=== PATIENT | female | born 2000 | race Two or more races ===

== ENCOUNTER 2025-01-12 13:05 | Emergency (ER) | payer OTHER ==
[~2025-01-12] VITALS: Ht 160 cm; Wt 54.4 kg
[2025-01-12] MEDS ORDERED: ONDANSETRON HCL 2 MG/ML VIAL IV ONE (14:45)
[2025-01-12] MEDS ORDERED: 0.9 % SODIUM CHLORIDE 1,000 ML IV ONE (14:45)
[2025-01-12] MEDS ORDERED: FAMOTIDINE/PF 20 MG/2 ML VIAL IV ONE (14:45)
[2025-01-12] MEDS ORDERED: FAMOTIDINE/PF 20 MG/2 ML VIAL ONE (15:31)
[2025-01-12] MEDS ORDERED: ONDANSETRON HCL 2 MG/ML VIAL ONE (15:31)
[2025-01-12 15:52] LABS: BASO % 0.5 % (0.1-1.2); EOS # 0.10 (0.04-0.54); EOS % 1.1 % (0.7-7.0); LYMPH # 1.96 (1.18-3.74); LYMPH % 20.7 % (19.3-53.1); MEAN PLATELET VOLUME 9.40 fl (9.4-12.4); MONO # 0.53 (0.24-0.82); MONO % 5.6 % (4.7-12.5); NEUT # 6.80 (1.56-6.13); NEUT % 71.8 % (34.0-71.1); RED CELL DISTRIBUTION WIDTH 13.4 % (11.6-14.4)
[2025-01-12 16:28] LABS: COVID-19 AG NEGATIVE (NEGATIVE)
[2025-01-12 16:41] LABS: ALT/SGPT 20.0 U/L (12-78); AST/SGOT 12.0 U/L (15-37); BILIRUBIN TOTAL 0.51 mg/dL (0.3-1.2); BUN CREA RATIO 9.0 (7.0-25.0); CREATININE SERUM 0.8 mg/dL (0.55-1.02); GFR 87.39; GLOBULINA 3.9 G/DL (2.4-3.5); GLUCOSE FASTING 101.0 mg/dL (65-100); OSMOLALITY SERUM 276.0 MOSM/KG (275-295)
[2025-01-12] MEDS ORDERED: ONDANSETRON ODT4 MG PO (18:27)
[2025-01-12] MEDS ORDERED: PEPCID AC20 MG PO (18:27)
[2025-01-12 21:22] VITALS: BP 125/74; O2SAT 100
== END 2025-01-12 21:23 | disposition home or self-care (01) ==
LOC: ER 13:06
PROVIDERS: Emergency Medicine; General Practice
DX: R10.13 Epigastric pain (principal); R11.2 Nausea with vomiting, unspecified; Z20.822 Contact with and (suspected) exposure to COVID-19